=== PATIENT | male | born 2000 | race Hispanic/Latino ===

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

== ENCOUNTER 2022-01-21 15:57 | Emergency (ER) | payer MEDICAID ==
[~2022-01-21] VITALS: Ht 160 cm; Wt 61.2 kg
[2022-01-21] MEDS ORDERED: IBUPROFEN 800 MG TAB PO ONE (16:30)
[2022-01-21] MEDS ORDERED: ONDANSETRON ODT 4MG TAB SL ONE (16:30)
[2022-01-21] MEDS ORDERED: ACETAMINOPHEN 500 MG TABLET PO ONE (16:30)
[2022-01-21] MEDS ORDERED: ACET-2247 PO (17:17)
[2022-01-21] MEDS ORDERED: IBUP-2071 PO (17:17)
[2022-01-21 17:40] VITALS: BP 119/57
== END 2022-01-21 17:46 | disposition home or self-care (01) ==
LOC: EDH 15:57
DX: J02.8 Acute pharyngitis due to other specified organisms (principal); J06.9 Acute upper respiratory infection, unspecified; Z20.822 Contact with and (suspected) exposure to COVID-19
CPT/HCPCS: 99284; 87635; 87880; 87804 ×2; C9803